=== PATIENT | female | born 1985 | race Caucasian/White ===

== ENCOUNTER 2016-04-04 07:45 | Emergency (ER) | payer OTHER ==
[~2016-04-04] VITALS: Ht 162.6 cm; Wt 107.5 kg
[2016-04-04 07:49] VITALS: BP 120/83
--- NOTE | 2016-04-04 08:31 | ED INFLUENZA/URI COMPLAINT ---
History of Present Illness General Chief Complaint: Upper Respiratory Sx/Fever Stated Complaint: URI Source: patient, family, old records Exam Limitations: no limitations Vital Signs & Intake/Output Vital Signs & Intake/Output Vital Signs Date Time Temp Pulse Resp B/P Pulse O2 O2 Flow FiO2 Ox Delivery Rate 04/04 0858 96.9 04/04 0852 96 04/04 0749 96.9 99 18 120/83 97 Room Air Allergies Coded Allergies: No Known Allergies (04/04/16) Reconcile Medications Albuterol Sulfate (Proair Hfa) 90 MCG HFA.AER.AD 2-4 PUF INH Q4-6 PRN PRN shortness of breath Amoxicillin 875 MG TABLET 1 TAB PO BID bronchitis Benzonatate (Tessalon Perle) 100 MG CAPSULE 1 CAP PO TID PRN cough Ibuprofen 600 MG TABLET 1 TAB PO Q6PRN PRN pain with food Prednisone 20 MG TABLET 1 TAB PO BID bronchospasm Triage Note: PT STATES SHE HAS A FEVER COUGH AND CONGESTION WITH NAUSEA. PT STATES DIARRHEA SINCE TUESDAY AND TODAY SHE IS HAVING A HARD TIME BREATHING. MASK PROVIDED IN TRIAGE Triage Nurses Notes Reviewed? yes Onset: 2 days Duration: constant, continues in ED, getting worse Timing: recent history Severity: moderate Prior Episodes/Possible Cause: illness exposure No Modifying Factors: none Associated Symptoms: cough, dizziness, fever/chills, muscle aches, nasal congestion, sore throat, wheezing LMP (ages 10-50): unknown : No Patient currently breastfeeds: No HPI: 2 days prior to patient patient complains of hacking nonproductive cough nasal congestion sore throat wheezing chills. She denies fever nausea vomiting diarrhea abdominal pain dysuria rash bleeding headache . Past History Travel History Traveled to [place] past 21 day No Medical History Any Pertinent Medical History? see below for history Neurological: FIBROMIALGIA Respiratory: asthma Musculoskeletal: rheumatoid arthritis Psychiatric: anxiety, depression Endocrine: hypothyroidism Surgical History Surgical History: non-contributory Psychosocial History What is your primary language Yoruba Tobacco Use: Current Not Daily Daily Tobacco Use Amount/Type: =< 4 Cigarettes daily ETOH Use: occasional use Illicit Drug Use: denies illicit drug use Family History Hx Contributory? No Review of Systems Review of Systems Constitutional: Reports: see HPI, chills, malaise. EENTM: Reports: see HPI, nasal congestion, throat pain. Respiratory: Reports: see HPI, cough, wheezing. Cardiovascular: Reports: no symptoms. GI: Reports: no symptoms. Genitourinary: Reports: no symptoms. Musculoskeletal: Reports: no symptoms. Skin: Reports: no symptoms. Neurological/Psychological: Reports: no symptoms. Hematologic/Endocrine: Reports: no symptoms. Immunologic/Allergic: Reports: no symptoms. All Other Systems: Reviewed and Negative Physical Exam Physical Exam General Appearance: well developed/nourished, alert, awake, anxious, mild distress Head: atraumatic, normal appearance Eyes: Bilateral: normal appearance, PERRL, EOMI. Ears, Nose, Throat: normal ENT inspection, moist mucous membrane, hearing grossly normal, Tympanic normal, pharyngeal erythema Neck: normal inspection, supple, full range of motion, lymphadenopathy (R), lymphadenopathy (L) Respiratory: chest non-tender, no respiratory distress, quiet respiration, decreased breath sounds, wheezing Cardiovascular: regular rate/rhythm, normal peripheral pulses, norml femoral pulses equa Peripheral Pulses: 4+ carotid (R), 4+ carotid (L) Gastrointestinal: normal bowel sounds, soft, non-tender, no organomegaly Back: normal inspection, normal range of motion Extremities: normal inspection, normal capillary refill, normal range of motion, no edema Neurologic/Psych: no motor/sensory deficits, oriented x 3, telecommunicator II-XII nml as tested Reflexes: 2+: bicep (R), bicep (L). Skin: intact, normal color, warm/dry Lymphatic: adenopathy Core Measures Severe Sepsis Present: No Septic Shock Present: No Progress Differential Diagnosis: influenza, otitis, pneumonia, pharyngitis, sinusitis Plan of Care: Orders Procedure Date/time Status RAPID VIRAL INFLUENZA A 04/04 0830 Complete Initial ED EKG: none Departure Departure Time of Disposition: 922 Disposition: HOME OR SELF CARE Condition: Stable Clinical Impression Primary Impression: Bronchitis, acute, with bronchospasm Referrals: JENNIFER CHAN MD (PCP/Family) Departure Forms: Customer Survey General Discharge Information RELEASE- WORK Prescriptions: Current Visit Scripts Amoxicillin 1 TAB PO BID #20 TAB Prednisone 1 TAB PO BID #10 TAB Benzonatate (Tessalon Perle) 1 CAP PO TID PRN cough #21 CAP Ibuprofen 1 TAB PO Q6PRN PRN pain #50 TAB with food Albuterol Sulfate (Proair Hfa) 2-4 PUF INH Q4-6 PRN PRN shortness of breath #1 INHAL
[2016-04-04] MEDS ORDERED: TESSALON PERLE100 M1 PO (09:25)
[2016-04-04] MEDS ORDERED: AMOXICILLIN875 M1 PO (09:25)
[2016-04-04] MEDS ORDERED: PREDNISONE20 M1 PO (09:25)
[2016-04-04] MEDS ORDERED: IBUPROFEN600 M1 PO (09:25)
[2016-04-04] MEDS ORDERED: PROAIR HFA8.5 GM INH (09:25)
== END 2016-04-04 09:32 ==
LOC: ERH 07:45
DX: J20.9 Acute bronchitis, unspecified (principal); F17.210 Nicotine dependence, cigarettes, uncomplicated
CPT/HCPCS: 1263; 87804; 87804-59